=== PATIENT | female | born 1975 | race Caucasian/White ===

== ENCOUNTER 2020-03-24 09:49 | Emergency (ER) | payer SELFPAY ==
[2020-03-24 09:54] VITALS: BP 144/83
[2020-03-24] MEDS ORDERED: KETOROLAC 30 MG/1 ML INJ IM ONE (11:16)
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
[2020-03-24] MEDS ORDERED: KETOROLAC 30 MG/1 ML INJ ONE (11:20)
--- NOTE | 2020-03-24 11:40 | XRay Report ---
LEFT SHOULDER, 3 VIEWS INDICATION / CLINICAL INFORMATION: pain. COMPARISON: None available. FINDINGS: No fracture, dislocation, or significant degenerative change. No abnormal soft tissue calcifications. IMPRESSION: Negative exam of the left shoulder. Signer Name: Daphnie Morris MD Signed: 03/24/2020 11:36 AM Workstation Name: [id number]
== END 2020-03-24 12:43 | disposition home or self-care (01) ==
LOC: ED 09:49
DX: S46.912A Strain of unspecified muscle, fascia and tendon at shoulder and upper arm level, left arm, initial encounter (principal); Z79.899 Other long term (current) drug therapy; V49.49XA Driver injured in collision with other motor vehicles in traffic accident, initial encounter; Y92.410 Unspecified street and highway as the place of occurrence of the external cause; Y93.89 Activity, other specified; Y99.8 Other external cause status
CPT/HCPCS: 73030; 96372; 99283; J1885